=== PATIENT | male | born 1980 | race Caucasian/White ===

== ENCOUNTER 2018-01-14 18:25 | Emergency (ER) | payer OTHER ==
[2018-01-14 18:34] VITALS: BP 138/86
--- NOTE | 2018-01-14 19:13 | EDPHY ---
H & P Smoking Status: Never smoked Time Seen by Provider: 01/14/18 18:57 HPI/ROS: CHIEF COMPLAINT: Left hand injury HISTORY OF PRESENT ILLNESS: 37-year-old [id number] male arrives via private vehicle complaining of acute left hand pain which occurred while he was at work at the [employer] training for [employer]. Patient works for [employer]. No paresthesia. No break in skin. PRIMARY CARE PROVIDER: REVIEW OF SYSTEMS: A ten point review of systems was performed and is negative with the exception of the items mentioned in the HPI PHYSICAL EXAM (Prior to examination, patient consented to physical exam, hands were washed and my usual and customary physical exam procedures followed) 1) GENERAL: Well-developed, well-nourished, alert and oriented. Appears to be in no acute distress. 2) HEAD: Normocephalic 3) HEENT: Pupils equal, round, reactive to light bilaterally. 4) LUNGS: Breathing comfortably. 5) MUSCULOSKELETAL: Soft compartments. Soft tissue swelling to the dorsum of the left hand, tender to palpation 3rd metacarpal. Normal coloration. No shortening no malrotation 6) SKIN: Intact. No puncture wound 7) VASCULAR: pulses and cap refill present are brisk 8) NEUROLOGIC: Radial, ulnar, median nerve function intact with no deficits appreciated on exam DIFFERENTIAL DIAGNOSIS: in no particular order including but not limited to fracture, sprain, compartment syndrome Procedure: Splint AnOrtho Glass volar splint was applied by ER computer support technician. After application of the splint I returned and re-examined the patient. The splint was adequately immobilizing the joint and distal to the splint the patient's circulation and sensation were intact. Patient shows no signs of compartment syndrome. Was given orthopedic precautions. (Lucy Evangelista) Constitutional: Initial Vital Signs Temperature (C) 36.9 C 01/14/18 18:31 Heart Rate 69 01/14/18 18:31 Respiratory Rate 16 01/14/18 18:31 Blood Pressure 138/86 H 01/14/18 18:31 O2 Sat (%) 95 01/14/18 18:31 O2 Delivery Mode Room Air Allergies/Adverse Reactions: No Known Allergies Allergy (Unverified 01/14/18 18:34) Home Medications: Medication Instructions Recorded Hydrocodone/APAP 5/325 [[place] 1 tab PO Q6 PRN #7 tab 01/14/18 5/325 (RX)] MDM/Departure - MDM Imaging Results: Imaging Impressions Hand X-Ray 01/14/18 19:00 Impression: Third metacarpal fracture. Images reviewed myself (Lucy Evangelista) ED Course/Re-evaluation: I did not see this patient while he was in the emergency department. However his care was discussed with the PA while the patient was in the department. I agree with treatment plan and management (Sudhir Mayorga) - Depart Disposition: Home, Routine, Self-Care Clinical Impression: Fracture of third metacarpal bone of left hand Qualifiers: Encounter type: initial encounter Fracture type: closed Metacarpal location: shaft Fracture alignment: displaced Qualified Code(s): S62.323A - Displaced fracture of shaft of third metacarpal bone, left hand, initial encounter for closed fracture Condition: Good Instructions: Hand Fracture (ED) Additional Instructions: Return to the ER immediately if you experience discoloration, have worsening pain, numbness, tingling, or any other symptoms that concern you. If you received x-rays in the emergency department today, be advised, that ligamentous , tendon, muscular, and other non-bony injury cannot be fully ruled out. Try to keep your affected extremity elevated above the level of your chest, and keep cold packs on the affected area, for the next 48 hours. Stand Alone Forms: Work Limited Duty, Work Comp Follow Up Prescriptions: Hydrocodone/APAP 5/325 [[place] 5/325 (RX)] 1 tab PO Q6 PRN #7 tab PRN Reason: Pain, Severe Referrals: Victor Hugo Stack MD [Medical Doctor] - 2-3 days, call for appt. (Dr. Victor Hugo Stack is orthopedic/hand surgeon)
== END 2018-01-14 20:00 | disposition home or self-care (01) ==
PROC: 2W3FX1Z Immobilization of Left Hand using Splint (ICD-10-PCS; principal; 2018-01-14)
DX: S62.323A Displaced fracture of shaft of third metacarpal bone, left hand, initial encounter for closed fracture (principal); X58.XXXA Exposure to other specified factors, initial encounter; Y99.0 Civilian activity done for income or pay